=== PATIENT | male | born 1995 | race Caucasian/White ===

== ENCOUNTER 2020-11-13 21:03 | Emergency (ER) | payer MEDICAID ==
[~2020-11-13] VITALS: Ht 180.3 cm; Wt 55.3 kg
[2020-11-13 21:12] VITALS: BP 122/79
--- NOTE | 2020-11-13 21:14 | NUR ---
ED Nurse Note: Patient walked into ED c/o multiple complaints, reports of upper neck pain upon waking up. reports of feeling "unwell" due to him having food poisoning monday, states that he had diarrhea and vomit monday but has since stopped. patient is alert and oriented x4, ambulatory with a steady gait. VSS
--- NOTE | 2020-11-13 21:47 | Emergency Room Report ---
History of Present Illness General Chief Complaint: Pain Source: Patient Present Illness HPI Patient presents with multiple complaints however the main one is left neck and upper shoulder tenderness. He states he had food poisoning a week ago and had episodes of vomiting and finally resulted in vomiting bile. He ate takeout and feels it is related to that. He denies vomiting blood or coffee grounds. He al so had diarrhea. The diarrhea was yellowish and brown. The symptoms resolved after 48 hours. Is left now with pain in his left neck and upper shoulder area. Positional and worse with palpation. He rates the pain 5/10. Took 1 [id number] Advil earlier today and says it helped minimally. He has some symptoms radiating to his left arm but denies weakness or decreased range of motion. When he moves his left arm about there is a clicking in his scapular area is chronic. (This also occurs in his left hip and is longstanding.) Patient denies fevers or chills. There is no headache. The patient claims to have musculoskeletal problems with his upper back. 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 The patient has some dysuria also. This is after a bout of food poisoning. He denies any discharge. He also has right testicular pain. He has had an ultrasound performed in the past and was told that he has some calcification. Lost contact with therapist. Increased bouts of anger. The patient denies exposure to Covid positive contacts. However the patient lives with 5 roommates in one house. No sore throat, chest pain, palpitations, abdominal pain, shortness of breath, rashes, visual changes, dizziness, headache. 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 COVID-19 Screening: Negative COVID-19 COVID-19 Testing Source: clinic Patient History Past Medical History: see triage record Social History: Reports: alcohol use - Rare, drug use - THC -daily use Social History Narrative Unemployed and lives with 5 roommates Reviewed Nursing Documentation: PMH: Agreed; PSxH: Agreed Nursing Documentation-PMH Past Medical History: No Stated History Review of Systems All Other Systems: negative except mentioned in HPI Physical Exam Vital Signs Date Time Temp Pulse Resp B/P (MAP) Pulse Ox O2 Delivery O2 Flow Rate FiO2 11/13/20 21:08 97.9 77 18 122/79 (93) 95 Room Air Sp02 EP Interpretation: reviewed, normal General Appearance: well appearing, no apparent distress, GCS 15 Head: normocephalic Eyes: bilateral eye normal inspection, bilateral eye PERRL, bilateral eye EOMI ENT: normal pharynx, moist mucus membranes Neck: supple, no meningismus, no bony tend, tender - Left posterior muscle masses extending to trapezius and scapular area Respiratory: lungs clear, normal breath sounds Cardiovascular #1: regular rate, rhythm Cardiovascular #2: 2+ radial (L) Gastrointestinal: normal inspection, non-distended Musculoskeletal: back normal, normal range of motion, gait/station normal, tender - Interscapular area with some clicking with movement of his shoulder Neurologic: alert, oriented x3, grossly normal Psychiatric: mood/affect normal Skin: no rash, warm/dry, other - Fully dressed Medical Decision Making Diagnostic Impression: Primary Impression: Neck pain Additional Impression: Dysuria ER Course The patient presents mainly with left-sided neck pain after a bout of vomiting a week ago. Differential includes neck strain, muscle spasm, meningitis, cervical radiculopathy amongst others. The patient also complains about dysuria with right testicular pain. Differential here is urinary tract infection, epididymitis amongst others. The fact that this pain is recurrent and chronic n ecessitates review of urinalysis. The patient also complains of increased anger however has lost contact with prior therapist. As the patient recently took ibuprofen the patient will be given Tylenol here. Urinalysis clear. Discussed results and treatment plan in detail with patient. Advised the patient that he needs to follow-up with primary physician. He has an appointment on Monday. In addition I strongly urged him to find a new therapist. Patient stable for outpatient observation and treatment. Last Vital Signs Date Time Temp Pulse Resp B/P (MAP) Pulse Ox O2 Delivery O2 Flow Rate FiO2 11/13/20 22:24 97.9 11/13/20 21:12 86 16 122/79 97 Room Air Status: improved Disposition: HOME, SELF-CARE Condition: Improved Scripts Ibuprofen* (MOTRIN*) 600 Mg Tablet 600 MG ORAL Q6H PRN for FOR PAIN, #20 TAB 0 Refills Prov: Haim Myrick MD 11/13/20 Haim Myrick MD Nov 13, 2020 21:47
[2020-11-13 22:06] LABS: APPEARANCE,URINE CLEAR; BILIRUBIN, URINE NEGATIVE (NEGATIVE); COLOR,URINE PALE YELLOW; GLUCOSE, URINE (UA) NEGATIVE (NEGATIVE); KETONES,URINE NEGATIVE (NEGATIVE); LEUKOCYTE ESTERASE ,URINE NEGATIVE (NEGATIVE); NITRITE,URINE NEGATIVE (NEGATIVE); PH,URINE 6.5 (4.5-8.0); PROTEIN,URINE NEGATIVE (NEGATIVE); UROBILINOGEN,URINE NORMAL MG/DL (0.0-1.0)
[2020-11-13] MEDS ORDERED: IBUPROFEN600 M1 ORAL (22:07)
[2020-11-13 22:50] VITALS: BP 118/72
--- NOTE | 2020-11-13 22:50 | NUR ---
ER DISCHARGE NOTE: Patient is cleared to be discharged per ERMD, pt is aox4, on room air, with stable vital signs. pt was given dc and prescription instructions, pt was able to verbalize understanding, pt id band removed without complications. pt is able to ambulate with steady gait. pt took all belongings.
== END 2020-11-13 22:50 | disposition home or self-care (01) ==
LOC: EMR 22:35
DX: M54.2 Cervicalgia (principal); R30.0 Dysuria
CPT/HCPCS: 80307; 81003; Z7502; 99283